=== PATIENT | male | born 1945 | race Caucasian/White ===

== ENCOUNTER 2024-11-15 10:28 | Emergency (ER) | payer OTHER ==
[~2024-11-15] VITALS: Ht 177.8 cm; Wt 68.0 kg
[2024-11-15] MEDS ORDERED: PRAVASTATIN SOD40 MG PO (10:43)
[2024-11-15] MEDS ORDERED: AMITRIPTYLINE25 MG PO (10:43)
[2024-11-15] MEDS ORDERED: Lopressor25 MG PO (10:43)
[2024-11-15] MEDS ORDERED: VITAMIN C500 M8 PO (10:44)
[2024-11-15] MEDS ORDERED: PANTOPRAZOLE SO40 MG PO (10:44)
[2024-11-15] MEDS ORDERED: LISINOPRIL5 MG PO (10:44)
[2024-11-15] MEDS ORDERED: TAMSULOSIN HCL0.4 MG PO (10:44)
[2024-11-15] MEDS ORDERED: ASPIRIN ADULT L81 M1 PO (10:45)
[2024-11-15] MEDS ORDERED: CENTRUM SILVER1 EAC2 PO (10:45)
[2024-11-15] MEDS ORDERED: AZITHROMYCIN 250 MG TAB PO ONE (10:55)
[2024-11-15] MEDS ORDERED: Albuterol Sulfate 2.5 MG/3 ML VIAL NEB ONE (10:55)
[2024-11-15] MEDS ORDERED: methylPREDNISolone sod succ 125 MG VIAL IV ONE (10:55)
[2024-11-15 11:17] LABS: BASO % 0.3 % (0.0-1.0); EOS % 0.6 % (1.0-4.0); HEMATOCRIT 37.9 % (42.0-52.0); MEAN CELL VOLUME 95.9 fl (80.0-94.0); MEAN CORPUSCULAR HGB 32.2 pg (27.0-31.0); MEAN CORPUSCULAR HGB CONC 33.5 g/dl (33.0-37.0); MEAN PLATELET VOLUME 9.8 fl (9.6-12.3); MONO # 0.4 10*3/uL (0.1-1.0); MONO % 12.7 % (3.0-9.0); NEUT # 1.5 10*3/uL (2.3-7.9); NEUT % 44.7 % (47.0-73.0); PLATELET COUNT AUTOMATED 177 10*3/uL (130-400); RED BLOOD COUNT 3.95 10*6/uL (4.50-5.90); RED CELL DISTRI WIDTH 12.6 % (0-14.5); WHITE BLOOD COUNT 3.4 10*3/uL (4.8-10.8)
[2024-11-15 11:36] LABS: BUN 31 mg/dl (9-23); CHLORIDE 101 mmol/L (98-107); POTASSIUM 4.3 mmol/L (3.4-5.1)
[2024-11-15] MEDS ORDERED: AVPAK AZITHROM250 M1 PO (12:17)
[2024-11-15] MEDS ORDERED: PREDNISONE20 M1 PO (12:17)
== END 2024-11-15 12:22 | disposition home or self-care (01) ==
LOC: ED 10:28
PROVIDERS: Emergency Medicine
DX: J44.1 Chronic obstructive pulmonary disease with (acute) exacerbation (principal); I10 Essential (primary) hypertension; I25.10 Atherosclerotic heart disease of native coronary artery without angina pectoris; Z91.013 Allergy to seafood; Z88.8 Allergy status to other drugs, medicaments and biological substances; Z95.1 Presence of aortocoronary bypass graft